=== PATIENT | male | born 2000 | race Caucasian/White ===

== ENCOUNTER 2023-07-26 14:24 | Emergency (ER) | payer OTHER ==
[2023-07-26] MEDS ORDERED: Ibuprofen 800 MG Tab PO ONE (15:35)
[2023-07-26] MEDS ORDERED: Lidocaine 1% 10 ML MDV INJECT ONE (15:35)
== END 2023-07-26 16:36 ==
LOC: JD.ED 14:24
DX: S92.911A Unspecified fracture of right toe(s), initial encounter for closed fracture (principal); J45.909 Unspecified asthma, uncomplicated; W20.8XXA Other cause of strike by thrown, projected or falling object, initial encounter; Y99.0 Civilian activity done for income or pay
CPT/HCPCS: 12001; 73630; 99283; A9270; J3490